=== PATIENT | female | born 1950 | race Caucasian/White ===

== ENCOUNTER 2019-05-16 23:05 | Inpatient (IN) ==
[2019-05-16] MEDS ORDERED: ASPIRIN ONE (23:20)
[2019-05-16] MEDS ORDERED: ASPIRIN PO ONE (23:27)
[2019-05-16 23:41] LABS: BASO# 0.02 X1000 (0.0-0.2); BASO% 0.2 % (0.0-0.8); EOS% 2.5 % (0.0-10.0); HEMATOCRIT 39.1 % (37.0-47.0); IMM GRAN# 0.02 X1000 (0.0-0.04); IMM GRAN% 0.2 % (0.0-0.5); LYMPH# 5.56 X1000 (1.2-3.4); LYMPH% 46.7 % (20.5-51.1); MCH 30.4 PG (27-31); MCHC 33.2 g/dL (33-37); MCV 91.6 FL (81-99); MONO% 7.6 % (1.7-9.3); MPV 9.4 FL (7.4-10.4); NEUT# 5.11 X1000 (1.4-6.5); NEUT% 42.8 % (42.2-75.2); PLT 288 X1000 (130-400); RBC 4.27 XMIL (4.2-5.4); RDW 13.1 % (11.5-14.5); WBC 11.91 X1000 (4.8-10.8)
[2019-05-17 00:03] LABS: INR 0.93; PROTIME 12.6 Seconds (11.0-16.0)
[2019-05-17 00:04] LABS: PTT 29.9 Seconds (22.3-41.8)
[2019-05-17 00:07] LABS: AGAP 10; ALB/GLOB RATIO 1.6; ALBUMIN 4.5 g/dL (3.5-5.0); ALKALINE PHOSPHATASE 101 U/L (32-104); BUN 9 mg/dL (8-22); CALCIUM 9.5 mg/dL (8.8-10.2); CHLORIDE 101 mmol/L (98-107); CK PROFILE 68 U/L (24-173); COSMO 281; CREATININE 0.6 mg/dL (0.5-0.9); ESTIMATED GFR > 60; GLUCOSE 156 mg/dL (70-104); GOT 29 U/L (10-30); GPT 37 U/L (10-36); POTASSIUM 3.9 mmol/L (3.5-5.1); SODIUM 140 mmol/L (136-145); TCO2 29 mmol/L (25-35); TOTAL PROTEIN 7.3 g/dL (6.3-8.3)
--- NOTE | 2019-05-17 00:17 | EKG Report ---
Test Performed on : 05/16/2019 11:07:10 PM Test Reason : chest pain/cardiac history with stent placement. Blood Pressure : / mmHG Vent. Rate : 101 BPM Atrial Rate : 101 BPM P-R Int : 140 ms QRS Dur : 080 ms QT Int : 326 ms P-R-T Axes : 027 044 098 degrees QTc Int : 422 ms Sinus tachycardia. Marked ST abnormality, possible lateral subendocardial injury Abnormal ECG When compared with ECG of 30-SEP-2015 15:04, ST now depressed in Lateral leads Unconfirmed Result
--- NOTE | 2019-05-17 00:25 | PROVIDER DOCUMENTATION ---
This chart was entered by Zhanna Villegas Scribe, acting as scribe for Scott Black MD. HPI-Chest Pain - General Chief Complaint: Chest Pain Stated Complaint: CHEST PAIN Time Seen by Provider: 05/16/19 23:23 Source: patient Allergies/Adverse Reactions: Patient Allergies Allergy/AdvReac Type Severity Reaction Status Date / Time No Known Allergies Allergy Verified 09/30/15 11:24 Home Medications: Home Medication List Medication Instructions Recorded Confirmed Last Taken Type Aspirin 1 tab PO DAILY 09/30/15 09/30/15 09/29/15 History Glipizide/Metformin HCl 1 tab PO BID 09/30/15 09/30/15 09/30/15 08:00 History [Glipizide-Metformin 2.5-500 mg] LISINOpril [Prinivil] 1 tab PO DAILY 09/30/15 09/30/15 09/29/15 History Nitroglycerin [Nitrostat] 1 tab SL DIRECTED 09/30/15 09/30/15 09/29/15 History Omeprazole [Prilosec] 1 cap PO DAILY 09/30/15 09/30/15 09/29/15 History Ranitidine HCl [Zantac] 300 mg PO BID #60 tablet 09/30/15 Unknown Rx Sucralfate [Carafate] 1 gm PO TID #100 tablet 09/30/15 Unknown Rx - History of Present Illness-CP Nature of Presenting Problem: Pt is 68/F presenting to ED w/ chest pain that has been intermittent for the last 6 months. Pt sts that tonight it got worse and was accompanied by SOB, dizziness and nausea. Pt describes the pain as sharp w/ some pressure. Pt does have hx of Stents, that were put in in 2009. Pt sts that this pain is worse with exersion. Location: reports: substernal Chest Pain Radiation: reports: no radiation Quality of Pain: reports: pressure, sharp Severity in ED: mild Onset/Duration: gradual, just prior to arrival Timing: improving Context/Activities at Onset: reports: none Modifying Factors: improves with: nothing Associated Symptoms: reports: denies symptoms, nausea. denies: vomiting Prior Chest Pain/Cardiac Workup: reports: stress test (nuclear) Similar Symptoms Previously?: Yes Recently Seen Here or By Another Healthcare Provider: No Review of Systems - Adult - REVIEW OF SYSTEMS - ADULT Constitutional: reports: no symptoms reported. denies: chills, fever Eyes: reports: no symptoms reported Ears, Nose, Mouth & Throat: reports: no symptoms reported Cardiovascular: reports: chest pain Respiratory: reports: no symptoms reported Gastrointestinal: reports: nausea. denies: abdominal pain, vomiting Genitourinary: reports: no symptoms reported Musculoskeletal: reports: no symptoms reported. denies: back pain Integumentary: reports: no symptoms reported Neurological: denies: dizziness/vertigo, headache/migraines Psychiatric: reports: no symptoms reported Endocrine: reports: no symptoms reported Hematologic/Lymphatic: reports: no symptoms reported Allergic/Immunologic: reports: no symptoms reported All Other Systems: Reviewed and Negative Past History - Adult - PAST MEDICAL HISTORY-ADULT Review of Records: reports: Old Records Reviewed, Nursing Assessment Review, Medications Reviewed, Social history reviewed & non-contributory. Cardiovascular: reports: HTN - PRIOR SURGERIES/PROCEDURES Surgical/Procedure History: reports: cholecystectomy, breast - IMMUNIZATION STATUS Childhood Immunizations: See Nurse Assessment Flu Vaccine: See Nurse Assessment - SOCIAL HISTORY Smoking: denies, non-smoker Substance Use: none/never Alcohol Use Frequency: never Living Situation: family Physical Exam-General - PHYSICAL EXAM-ADULT Initial Vital Signs Reviewed: Yes - CONSTITUTIONAL General Appearance: appears well, alert, no apparent distress - EYES Eyes: PERRL/EOMI, pink conjunctivae - HEAD, EARS, NOSE, MOUTH & THROAT HENMT: normocephalic/atraumatic, moist mucous membranes - NECK Neck: non-tender, full range of motion, supple, normal inspection - RESPIRATORY Respiratory: lungs clear - CARDIOVASCULAR Cardiovascular: regular rate, rhythm - MUSCULOSKELETAL Back Exam: normal inspection, no CVA tenderness, no vertebral tenderness Extremity: normal range of motion, non-tender, normal gait, normal inspection - SKIN Integumentary: normal color, warm/dry - NEUROLOGIC Neurologic: grossly normal - PSYCHIATRIC Psych/Mental Status: normal mood/affect, normal thought content, normal thought process, oriented x 3 - HEART Score HEART Score: Age: > or = 65 Years Progress - PLAN OF CARE/RESULTS Progress/Plan/Lab Results: Vital Signs - 8 hr 05/16/19 23:18 Temperature 98.6 F Pulse Rate 94 H Respiratory Rate 18 Blood Pressure 184/96 O2 Sat by Pulse Oximetry 95 Laboratory Results - last 24 hr 05/16/19 05/16/19 05/16/19 23:00 23:00 23:00 WBC 11.91 H RBC 4.27 Hgb 13.0 Hct 39.1 MCV 91.6 MCH 30.4 MCHC 33.2 RDW Std Deviation 13.1 Plt Count 288 MPV 9.4 Immature Gran % (Auto) 0.2 Neut % (Auto) 42.8 Lymph % (Auto) 46.7 [place] % (Auto) 7.6 Eos % (Auto) 2.5 Baso % (Auto) 0.2 Immature Gran # (Auto) 0.02 Neut # (Auto) 5.11 Lymph # (Auto) 5.56 H [place] # (Auto) 0.90 H Eos # (Auto) 0.30 Baso # (Auto) 0.02 PT INR PTT (Actin FS) Sodium 140 Potassium 3.9 Chloride 101 Carbon Dioxide 29 Anion Gap 10 BUN 9 Creatinine 0.6 Estimated GFR/1.73 m2 > 60 BUN/Creatinine Ratio 15 Glucose 156 H Calculated Osmolality 281 Calcium 9.5 Total Bilirubin 0.20 AST 29 ALT 37 H Alkaline Phosphatase 101 Creatine Kinase 68 Troponin T Qwu-T-Qfndelfhqmc Pept 82 Total Protein 7.3 Albumin 4.5 Globulin 2.8 Albumin/Globulin Ratio 1.6 05/16/19 05/16/19 23:00 23:00 WBC RBC Hgb Hct MCV MCH MCHC RDW Std Deviation Plt Count MPV Immature Gran % (Auto) Neut % (Auto) Lymph % (Auto) [place] % (Auto) Eos % (Auto) Baso % (Auto) Immature Gran # (Auto) Neut # (Auto) Lymph # (Auto) [place] # (Auto) Eos # (Auto) Baso # (Auto) PT 12.6 INR 0.93 PTT (Actin FS) 29.9 Sodium Potassium Chloride Carbon Dioxide Anion Gap BUN Creatinine Estimated GFR/1.73 m2 BUN/Creatinine Ratio Glucose Calculated Osmolality Calcium Total Bilirubin AST ALT Alkaline Phosphatase Creatine Kinase Troponin T < 0.010 Lab-U-Xinoxbfgvpu Pept Total Protein Albumin Globulin Albumin/Globulin Ratio Orders Category Date Time Status Cardiac Monitoring DIRECTED Care 05/16/19 23:28 Active Oxygen Therapy- ED Nursing DIRECTED Care 05/16/19 23:28 Active Saline Loc NOW Care 05/16/19 23:28 Active CHEST-2 VIEWS [RAD] Stat Exams 05/16/19 23:28 Taken CBC WITH ELECTRONIC DIFF [HEME] Stat Lab 05/16/19 23:00 Completed CK PROFILE [SP CHEM] Stat Lab 05/16/19 23:00 Completed COMPREHENSIVE METABOLIC PANEL [CHEM] Stat Lab 05/16/19 23:00 Completed PRO B-NATRIURETIC PEPTIDE Stat Lab 05/16/19 23:00 Completed PROTIME WITH INR [COAG] Stat Lab 05/16/19 23:00 Completed PTT [COAG] Stat Lab 05/16/19 23:00 Completed TROPONIN T Stat Lab 05/16/19 23:00 Completed Aspirin Med 05/16/19 23:20 Discontinued 325 mg .ROUTE .STK-MED ONE Aspirin Med 05/16/19 23:27 Discontinued 325 mg PO NOW ONE CP/SOB/Palp >45 yrs of Age Stat Oth 05/16/19 23:27 Ordered EKG [EKG] Stat Ther 05/16/19 23:28 Draft Result Diagrams: 05/16/19 23:00 05/16/19 23:00 - EKG 1 Time of EKG reading by physician:: 23:07 EKG Read and Signed by:: Scott Black EKG Interpretation (*Must complete 3 of following elements*): Abnormal (Sinus tachycardia, Marked ST Abnormality, Possible lateral subendocardial injury. Abnormal ECG) Rate: 101 Rhythm: sinus tachycardia [place]: normal QRS: normal Departure - Departure Date of Disposition Decision: 05/17/19 Time of Disposition Decision: 00:24 DIAGNOSIS: Stable angina Chest pain Qualifiers: Chest pain type: other chest pain Qualified Code(s): R07.89 - Other chest pain; R07.8 - Other chest pain Disposition: ADMITTED INPATIENT 09 Certified Medical Emergency: Emergent Condition: Stable Referrals and Follow-Ups: Michael Vasquez MD [Primary Care Provider] - - Critical Care Note This patient required my direct & personal management of CC.: No Attestation - Physician/ RIDGE Attestation Patient care was provided by Advanced Practice Provider:: No The physician spent face to face time with patient:: Yes Advanced Practice Provider documentation review:: Supervising physician onsite and consulted in the evaluation and care of this patient. The physician did have a face to face encounter with the patient. This chart was documented by the indicated scribe, (Zhanna Villegas Scribe) and accurately reflects the services I performed and decisions made by me, Scott Parada MD, as attested by the provider's signature.
--- NOTE | 2019-05-17 01:48 | HISTORY AND PHYSICAL ---
ADDENDUM REPORT Patient of Dr. Vasquez and patient of Dr. Vila. Patient is a 68-year-old woman with past medical history of hypertension, hyperlipidemia, type 2 diabetes, prior CAD status post stent. Complaining of at least 6 months history of exertional chest pain which has gotten progressively worse over the last couple of weeks, i.e., in intensity, duration prior to relief and additional anginal symptoms such as diaphoresis, nausea, lightheadedness and palpitations. Brought into today at the behest of her daughter who is a nurse and because the patient was complaining that her pain was so intense. She did not complain of leg swelling, PND, orthopnea with this. Her EKG just shows normal sinus rhythm with nonspecific ST wave changes in the lateral leads. Chest film is normal. Troponin is negative. Based on her presentation, this patient has unstable angina. We will start her on full dose aspirin, high dose statin, i.e., Lipitor 80 mg daily, and control blood sugars with sliding scale, check A1c, lipid panel. We will call Dr. Christian preference of Lovenox versus heparin. Put her on nitroglycerin paste. This patient definitely will need a cardiac cath because of her symptoms to evaluate her coronary anatomy better. cc: MD Michael Villegas MD William D. Denney, MD MTDD
[2019-05-17] MEDS ORDERED: MORPHINE IV PRN (02:21)
[2019-05-17] MEDS ORDERED: ZOFRAN IV PRN (02:21)
[2019-05-17] MEDS ORDERED: NITROGLYCERIN TOP PRN (02:21)
[2019-05-17] MEDS ORDERED: TYLENOL PO PRN (02:21)
[2019-05-17] MEDS: LOVENOX SUBQ SCH ×2 (03:03→15:12)
--- NOTE | 2019-05-17 05:15 | HISTORY AND PHYSICAL ---
PRIMARY CARE PROVIDER: Dr. Michael Vasquez. SBA UNDERWRITER: Dr. Vila. DATE AND TIME: 05/17/2019 at 0040. CHIEF COMPLAINT: Chest pain. HISTORY OF PRESENT ILLNESS: Ms Carter is a 68-year-old female with a past medical history of coronary artery disease status post cardiac stent placement x1 in 2009. The patient reports that since her stent placement she has had 1 stress test performed, though this was quite a few years ago. She also reports that she has high blood pressure, hyperlipidemia, and diabetes mellitus type 2. The patient states that since approximately October 2018, that she has been having intermittent chest pain with exertion. She states that since October this exertional chest pain has progressively gotten worse, and in the last month the number of episodes have increased as well as the intensity of the pain and the duration of how long the pain takes to stop after she sits down and rests has increased as well. She has been reporting some associated symptoms of dizziness, dyspnea, diaphoresis, and indigestion. The patient reports that this evening the pain did become so intense that she became very uncomfortable, was actually crying. She reported it to be a 10/10 on the pain scale. Secondary to this, she did come into the ER for further evaluation. She denies any headache, cough, abdominal pain, nausea, vomiting, or diarrhea. She denies any dysuria or urinary frequency. She denies any pain, numbness, tingling, or swelling in her extremities. She also denies any fever, body aches, or chills. On evaluation in the ER, patient's EKG showed normal sinus rhythm with nonspecific ST-wave changes in lateral leads. Her chest x-ray showed no acute abnormalities, and CK and troponin at this time are negative. Electrolytes are within normal limits as well. She was given a full dose 325 mg aspirin in the ER. Though, given her history and reported symptoms, and that her chest pain episodes have increased in number of occurrences, intensity, and duration, we will admit her for evaluation of her unstable angina. The patient reported that the chest pain that she was experiencing was in the center of her chest, was a 10/10. It was sharp in nature. It did radiate to her bilateral shoulders and neck, though she denies any chest pain at present. REVIEW OF SYSTEMS: A 14-point review of systems was conducted with the patient and all were negative, except for pertinent positives mentioned above in HPI. PAST MEDICAL HISTORY: 1. Coronary artery disease, stent cardiac stent placement x1 in 2009. 2. Hypertension. 3. Diabetes mellitus type 2. 4. Hyperlipidemia. 5. Gastroesophageal reflux disease. PAST SURGICAL HISTORY: 1. Breast reduction. 2. Cardiac stent placement x1 in 2009. SOCIAL HISTORY: The patient denies any past or present tobacco, alcohol, or illicit drug use. FAMILY HISTORY: Positive for her Mother having history of diabetes mellitus an hypertension. Her Father had a history of heart disease and did have an abdominal aortic aneurysm repair, which unfortunately he did get a post-op infection with MRSA and approximately 1 month after surgery due to complications of infection. Both of her sisters are , one had a history of hypertension. The other did have lung cancer, though was a smoker. ALLERGIES: No known allergies. HOME MEDICATIONS: 1. Aspirin 81 mg p.o. daily. 2. Fenofibrate 145 mg p.o. daily. 3. Glipizide-metformin 2.5-5 mg, 1 tablet p.o. b.i.d. 4. Bydureon pen, 0.6 units subcu q.7 days, the last dose reportedly taken 05/15/2019. 5. Prilosec 20 mg p.o. daily 6. Lisinopril 10 mg p.o. daily. The patient states that Dr. Vasquez recently increased this to 10mg p.o. twice daily, though at this time she has not increased her dose and still takes 10mg p.o. once daily. . DIAGNOSTIC DATA: White blood cell 11,910, hemoglobin 13, hematocrit 39.1, platelet count 288. PT 12.6, INR 0.93, PTT is 29.9. Sodium 140, potassium 3.9, chloride 101, serum bicarbonate 29, BUN 9, creatinine 0.6. Glucose 156, calcium 9.5, Magnesium 2.1. Liver function tests within normal limits, except ALT is slightly elevated at 37. CK 68, troponin 0.01. Pro-BNP 82. EKG showed normal sinus rhythm with nonspecific ST, T-wave changes in the lateral leads at a rate of 101, with a QTc of 422 msec. Chest x-ray showed no acute abnormalities, but we are awaiting official Radiology over-read. PHYSICAL EXAMINATION: VITAL SIGNS: Temperature 98.2 degrees, heart rate 83, respirations 20, blood pressure 135/83, oxygen saturation is 97% on room air. GENERAL: Ms Carter is a very pleasant, 68-year-old, female. She was resting on the ER stretcher. She was in no acute distress. She was awake, alert, and able to answer questions appropriately. HEENT: Head is atraumatic, normocephalic. Pupils are equal, round, reactive to light, were 3 mm bilaterally and brisk. Oral mucosa was moist. Oropharynx is clear. NECK: Supple. Trachea midline. No carotid bruits noted upon auscultation bilaterally. CARDIOVASCULAR: Patient has S1, S2 present. No murmurs, gallops, rubs appreciated with a regular rate and rhythm. PULMONARY: Patient has symmetrical chest expansion bilaterally. Lung sounds are clear to auscultation bilateral full [place]. ABDOMEN: Soft, nondistended, though the patient does have a slightly protuberant abdomen noted. Her abdomen is nontender upon palpation. Bowel sounds are present in all 4 quadrants, are normoactive. EXTREMITIES: No cyanosis or edema noted. Pulse, motor, and sensory were intact in all extremities. Radial and pedal pulses were 2+ bilaterally. INTEGUMENTARY: The patient's skin is pink, warm, and dry. NEUROLOGICAL: Patient is alert and oriented to person, place, time, and situation. She is she is able to move all extremities. There are no focal neurological deficits noted. ASSESSMENT AND PLAN: 1. Unstable angina. We will place her on 325 mg aspirin p.o. daily, atorvastatin 80 mg p.o. daily. We have placed a cardiology consult with Dr. Christian and did contact him in regards to his preference of anticoagulation with either Lovenox versus heparin drip. He did recommend Lovenox. We have placed an order 1 mg/ kg subcutaneously q.[address] p[address]r.n. orders for nitroglycerin and morphine for chest pain. We will continue her regularly prescribed antihypertensive medication of lisinopril. We will do a series of cardiac enzymes. We will repeat an EKG in the morning, and we have placed an order for an echocardiogram. She will be placed on our PVC unit on continuous cardiac telemetry with frequent vital signs for close monitoring. We will await Cardiology evaluation and further recommendations for management. 2. Coronary artery disease status post cardiac stent placement x1. We will continue treatment as mentioned above in #1. 3. Hypertension. We will continue regularly prescribed antihypertensive medication of lisinopril. 4. Diabetes mellitus type 2. At this time, we will place the patient on sliding scale regular insulin, do pattern fingerstick blood sugars. We will order a hemoglobin A1c. 5. Hyperlipidemia. We have placed the patient on atorvastatin 80 mg p.o. at bedtime. 6. Deep venous thrombosis prophylaxis being provided with the above-mentioned Lovenox. She will be placed on the PVC unit with continuous cardiac telemetry. We will do q.4 hours vital signs, strict intake and output. She will be on a diabetic and heart healthy diet, though will be likely NPO after midnight on Saturday for possible cardiac catheterization Saturday. We will also draw lipid profile at that time as well. Further orders and recommendations pending hospital course, diagnostic studies, and physician evaluations. Dictated by ALE Patel for Hayde Sierra MD cc: MD Michael Villegas MD MTDD
[2019-05-17 05:53] LABS: BASO# 0.02 X1000 (0.0-0.2); BASO% 0.2 % (0.0-0.8); EOS# 0.27 X1000 (0.0-0.7); EOS% 2.9 % (0.0-10.0); HEMATOCRIT 36.6 % (37.0-47.0); HEMOGLOBIN 12.3 g/dL (12.0-16.0); IMM GRAN# 0.02 X1000 (0.0-0.04); IMM GRAN% 0.2 % (0.0-0.5); LYMPH# 4.37 X1000 (1.2-3.4); LYMPH% 46.6 % (20.5-51.1); MCH 31.1 PG (27-31); MCHC 33.6 g/dL (33-37); MCV 92.7 FL (81-99); MONO# 0.57 X1000 (0.11-0.59); MONO% 6.1 % (1.7-9.3); MPV 9.9 FL (7.4-10.4); NEUT# 4.13 X1000 (1.4-6.5); PLT 269 X1000 (130-400); RBC 3.95 XMIL (4.2-5.4); RDW 13.2 % (11.5-14.5); WBC 9.38 X1000 (4.8-10.8)
[2019-05-17 06:05] LABS: HEMOGLOBIN A1C 7.1 % (4.8-6.0)
[2019-05-17] MEDS: PRILOSEC PO SCH (06:33)
[2019-05-17] MEDS: HUMULIN R SUBQ SCH ×4 (06:34→21:50)
--- NOTE | 2019-05-17 07:41 | EKG Report ---
Test Performed on : 05/17/2019 07:05:30 AM Test Reason : chest pain Blood Pressure : / mmHG Vent. Rate : 076 BPM Atrial Rate : 076 BPM P-R Int : 140 ms QRS Dur : 086 ms QT Int : 344 ms P-R-T Axes : 029 026 064 degrees QTc Int : 387 ms Normal sinus rhythm. Nonspecific T wave abnormality Abnormal ECG When compared with ECG of 16-MAY-2019 23:07, (Unconfirmed) ST no longer depressed in Lateral leads Confirmed by Airam Milton MD ([id number]) on 05/19/2019 8:29:24 AM
--- NOTE | 2019-05-17 08:19 | Diag Imaging Result Doc PS360 ---
EXAM: CHEST-2 VIEWS - 05/16/2019 HISTORY: Chest Pain Substernal/Cardiac Stents. TECHNIQUE: Chest two views COMPARISON: 10/10/2015 FINDINGS: Heart size is normal. There is chronic elevation of anterior right hemidiaphragm. The lungs appear clear. There is no pleural effusion or pneumothorax identified. There is thoracic spondylosis noted. There are small calcifications noted of the anterior upper quadrant abdomen which may represent gallstones. IMPRESSION: No evidence of acute disease. There are possible gallstones noted at the right upper quadrant abdomen. Electronically signed by Sachin Stoll 05/17/2019 8:16 AM
[2019-05-17] MEDS: PRINIVIL PO SCH (09:31)
[2019-05-17] MEDS ORDERED: LOPRESSOR PO ONE (12:36)
--- NOTE | 2019-05-17 14:01 | PROGRESS NOTE ---
DATE: 05/17/2019 SUBJECTIVE: The patient's chart was reviewed. In summary, patient was admitted to [facility] early this morning with chest discomfort. The patient has a known history of coronary artery disease requiring stent placement in 2009. The patient was placed in the PVC unit. She was started on an aspirin and Lovenox therapy. High dose atorvastatin was initiated. Upon my arrival, patient was sitting upright in bed visiting with her family. The patient noted minimal chest discomfort. She denies current nausea, vomiting, shortness of breath, or palpitations. Primary reducing machine operator is Dr. Vila. OBJECTIVE: T-max 98.6 degrees, heart rate 73 to 91, respirations 16 to 22, blood pressure 135 to 175 over 75 to 98.General: Well nourished, well developed, no acute distress. Cardiovascular: Regular rate and rhythm. No significant murmurs, rubs, or gallops. Pulmonary: Clear to auscultation bilaterally. Abdomen: Soft, nontender, nondistended. Positive bowel sounds. Extremities: Moves all extremities well. No significant clubbing, cyanosis, or edema. Dermatologic: Evaluation reveals no evidence of rash. LABORATORY DATA: White blood cell count 9.38, hemoglobin 12.3, hematocrit 36.6, platelet count 269,000. Hemoglobin A1c is 7.1. Serial cardiac enzymes and troponin have returned negative. ASSESSMENT AND PLAN: 1. Unstable angina in a patient with known coronary artery disease-we will continue aspirin, atorvastatin, and Lovenox. Nitroglycerin paste has been ordered for as needed for chest discomfort. We will pursue Cardiology consultation. The patient will remain n.p.o. after midnight for possible cardiac evaluation. We will add low-dose beta-pallavi this morning. 2. Known coronary artery disease-as above, patient is status post stent placement. We will aggressively manage risk factors and address unstable angina as above. 3. Hypertension-patient's blood pressure remained slightly elevated despite lisinopril therapy. We will add a beta-pallavi as described. We will follow this and adjust medications as necessary. 4. Type 2 diabetes-we will continue patient on sliding scale insulin. 5. Iowttgweoznmqh-xhzh-guzx atorvastatin therapy was initiated upon admission. We will continue this and defer further management to Dr. Vasquez. 6. Hypertriglyceridemia-patient is treated with fenofibrate as an outpatient. This will be held with the initiation of atorvastatin. We will defer resuming this to Dr. Vasquez. 7. Reflux disease-we will continue patient on omeprazole therapy. 8. Possible cholelithiasis-this was noted per chest x-ray. We will defer possible evaluation with ultrasound to Dr. Vasquez after cardiology evaluation has been completed. 9. Disposition-at this point, patient continues to require shelter care in a hospital setting. We will plan discharge home once appropriate. cc: MD Michael Burciaga MD
--- NOTE | 2019-05-17 14:54 | CARDIOLOGY CONSULTATION ---
DATE: 05/17/2019 HISTORY OF PRESENT ILLNESS: Cardiology was consulted for chest pain. Ms. Carter is a 68-year- old, lady with a history of coronary artery disease, stent placement in 2009, history of diabetes, hypertension, hyperlipidemia. Comes with complaints of chest discomfort which has been intermittent and gradually worsening. She had a very severe episode of chest discomfort going back in August which subsequently, after that, she had felt well. However, in the last 2 to 3 months, she has been getting intermittent episodes of chest pain with exertion which she describes as retrosternal in area. Symptoms of chest pain worsened. She came to the emergency room and subsequently was admitted. As far as intensity of chest pain, it has progressively worsened and she was uncomfortable with that. She described it as a severe pressure-like sensation. Her electrocardiogram revealed normal sinus rhythm with nonspecific ST-T changes. She has been ruled out for myocardial infarction by cardiac enzymes. She denies any radiation to the back or down the arms. There is no history of orthopnea or paroxysmal nocturnal dyspnea. REVIEW OF SYSTEMS: A 14-point review of systems was done. Gastrointestinal System: There is no history of nausea, vomiting, or diarrhea. There is no history of hematemesis or melena. Central Nervous System: No focal weakness to suggest a CVA, TIA. System: There is no dysuria or hematuria. Respiratory System: There is no history of cough, expectoration, or hemoptysis. There is no history of fevers or chills. PAST MEDICAL HISTORY: 1. Coronary artery disease, status post stent placement in 2009. 2. Hypertension. 3. Hyperlipidemia. 4. Gastroesophageal reflux disease. 5. Breast reduction surgery. SOCIAL HISTORY: She denies tobacco abuse. FAMILY HISTORY: Positive for mother having had diabetes. Her father had a history of heart disease and also had an abdominal aorta aneurysm repair. ALLERGIES: She is not known to be allergic to any medications. HOME MEDICATIONS: Include aspirin 81 mg a day, fenofibrate 185, glipizide/metformin 2.5/500 one tablet b.i.d., Bydureon injections, Prilosec 20, lisinopril. PHYSICAL EXAMINATION: Vital Signs: Blood pressure was 135/83. Cardiovascular System: Normal jugular venous pressure. There was no thyromegaly. There was no carotid bruit. First and second heart sounds were heard. There is a faint systolic murmur. Respiratory System: Normal air entry. There were no crepitations or rhonchi. Abdomen: Soft, nontender. There was no guarding or rigidity. Bowel sounds were heard. Central Nervous System: Alert and was moving all 4 extremities. Examination of extremities revealed no pedal edema. HEENT: Atraumatic, normocephalic. Pupils were equal and reacting to light. LABORATORY EXAMINATION: Revealed WBC of 9.38, RBC of 3.95, hemoglobin 12.3, hematocrit 36.6, platelet count of 269,000. Sodium 140, potassium 3.9, BUN 9, creatinine 0.6. Cardiac enzymes negative. Electrocardiogram revealed normal sinus rhythm with nonspecific ST-T changes. Chest x- ray, possible gallstone, right upper quadrant. ASSESSMENT AND PLAN: 1. Ms. Viviana Carter is a 68-year-old, lady with a history of known coronary artery disease, diabetes, hypertension, hyperlipidemia. Comes with complaints of having recurrent chest pain since the last couple of months. She had severe retrosternal chest discomfort going back in August as well. The patient has unstable angina. Given this, I have recommended that she undergo a left heart catheterization. Risks, benefits, and alternatives were explained. Patient will be set up for a left heart catheterization in the morning. 2. Hypertension. Continue with her medications. 3. Diabetes. Continue with her medications. 4. Hyperlipidemia. She is on atorvastatin. I have not made any changes. 5. She has gastroesophageal reflux disease. Continue with omeprazole. 6. She has cholelithiasis. There was no tenderness noted in the abdomen. We will follow up after her cardiac catheterization. Thank you for the consult. We will follow hospital course. cc: MD Michael Blankenship MD
--- NOTE | 2019-05-17 16:36 | ECHO REPORT ---
ORDER DATE: 05/17/2019 ECHOCARDIOGRAPHIC MEASUREMENTS: 1. Interventricular septum 1.1. 2. Left ventricular posterior wall 1.1. 3. Diastolic diameter 4.1. 4. Left atrium 3.5. 5. Aorta 2.9. SUMMARY: 1. Aortic valve leaflets are trileaflet. 2. Pulmonic valve was normal. 3. Tricuspid valve was normal. 4. Mitral valve was normal. 5. Normal left ventricular cavity size. Estimated ejection fraction of 65%. 6. There is mild diastolic dysfunction. 7. There is trace mitral regurgitation. 8. Mild tricuspid regurgitation. 9. Peak velocity across the tricuspid valve was 2.2 m/sec. 10. Technically suboptimal study. 11. Anterior echo-free space suggestive of pericardial fat pad was noted. There is no pericardial effusion or obvious intracardiac mass or thrombus. cc: MD Michael Blankenship MD
[2019-05-17] MEDS ORDERED: ASPIRIN PO SCH (21:00)
[2019-05-17] MEDS ORDERED: LIPITOR PO SCH (21:00)
[2019-05-17] MEDS: LOPRESSOR PO SCH (21:47)
[2019-05-18 05:24] VITALS: BP 133/62
[2019-05-18] MEDS: HUMULIN R SUBQ SCH ×2 (06:13→11:38)
[2019-05-18 07:23] LABS: BASO# 0.03 X1000 (0.0-0.2); BASO% 0.4 % (0.0-0.8); EOS% 2.6 % (0.0-10.0); HEMOGLOBIN 12.8 g/dL (12.0-16.0); IMM GRAN# 0.02 X1000 (0.0-0.04); IMM GRAN% 0.3 % (0.0-0.5); LYMPH# 2.81 X1000 (1.2-3.4); LYMPH% 37.2 % (20.5-51.1); MCH 30.6 PG (27-31); MCHC 32.8 g/dL (33-37); MCV 93.3 FL (81-99); MONO# 0.55 X1000 (0.11-0.59); MONO% 7.3 % (1.7-9.3); MPV 9.6 FL (7.4-10.4); NEUT# 3.94 X1000 (1.4-6.5); NEUT% 52.2 % (42.2-75.2); PLT 274 X1000 (130-400); RBC 4.18 XMIL (4.2-5.4); RDW 13.2 % (11.5-14.5); WBC 7.55 X1000 (4.8-10.8)
[2019-05-18 07:45] LABS: AGAP 12; BUN 10 mg/dL (8-22); CALCIUM 9.1 mg/dL (8.8-10.2); CHLORIDE 101 mmol/L (98-107); COSMO 280; CREATININE 0.6 mg/dL (0.5-0.9); ESTIMATED GFR > 60; GLUCOSE 186 mg/dL (70-104); POTASSIUM 3.9 mmol/L (3.5-5.1); SODIUM 138 mmol/L (136-145); TCO2 25 mmol/L (25-35)
[2019-05-18] MEDS: PRINIVIL PO SCH (08:15)
[2019-05-18] MEDS: LOPRESSOR PO SCH (08:15)
[2019-05-18] MEDS: PRILOSEC PO SCH (08:15)
[2019-05-18] MEDS ORDERED: NITROGLYCERIN ONE (08:24)
[2019-05-18] MEDS ORDERED: SODIUM CHLORIDE 0.9% 20 ML ONE (08:24)
[2019-05-18] MEDS ORDERED: HEPARIN 1000 UNITS/NS 2,000 UNIT/1,000 ML IV.SOLN ONE (08:25)
[2019-05-18] MEDS ORDERED: VERSED ONE (08:49)
[2019-05-18] MEDS ORDERED: DILAUDID ONE (08:50)
[2019-05-18] MEDS ORDERED: ANESTHESIA PB SET 88 IN 5742 ONE (08:59)
[2019-05-18] MEDS ORDERED: NS 1,000 ML ONE (08:59)
[2019-05-18] MEDS ORDERED: CLAVE TWINSITE 32 IN 11959 ONE (08:59)
[2019-05-18] MEDS ORDERED: TOPROL XL PO SCH (09:00)
--- NOTE | 2019-05-18 10:44 | CARDIAC CATH REPORT ---
PROCEDURE NAME: - INDICATION FOR THE PROCEDURES: Unstable angina. PROCEDURES PERFORMED: 1. Left heart catheterization. 2. Selective coronary angiography. 3. Left ventriculogram. PROCEDURE IN DETAIL: Ms. Carter was brought to the catheterization laboratory in a fasting state. Informed consent was obtained. Prepped in the usual fashion. She was anesthetized over the right radial artery after Christian's test proved adequate. A 5-Jordanian sheath was placed via true Seldinger technique. Radial cocktail was administered. Catheters were introduced and hemodynamic measurements made in the ascending thoracic aorta. Coronary angiography was performed in multiple views using JL3.5 and JR4 diagnostic catheters. Left heart catheterization and left ventriculogram were performed using the JR4. At the conclusion of the procedure, all sheaths and catheters were removed. TR band was left inflated at 9 mL of air with good capillary refill and good hemostasis. No apparent complications. There were 80 mL of IV contrast and 5-10 mL of blood loss. FINDINGS: 1. The left main originates from the left coronary cusp. It has minor luminal irregularities. 2. Left anterior descending originates from the left main. There is a 95% late proximal lesion at the origin of the first diagonal with minor luminal regularities proceeding as well as after the lesion in the mid and distal vessel. 3. Circumflex appears to have a possible ostial 80% lesion. There is a high OM1 versus ramus branch that appears to have mild luminal irregularities. The mid vessel appears to be occluded and has some faint collaterals, mainly from the right to the left. 4. Right coronary originates from the right coronary cusp. Minor luminal regularities are noted in the proximal vessel with a patent stent. The late mid vessel has an 80% discrete lesion with minor luminal irregularities noted in the distal vessel. 5. Left ventriculogram demonstrates an ejection fraction of 70%. 6. Aortic blood pressure 132/83 with a mean of 104. Left ventricular pressure of 148/8 with an LVEDP of 14. ASSESSMENT: Ms. Carter is a 68-year-old, white female with diabetes who presented with unstable angina symptoms. PLAN: She appears to have multivessel coronary artery disease as evidenced by right coronary, circumflex, and LAD lesions. Given her history of diabetes and normal ejection fraction, she would be a candidate for cardiovascular surgery evaluation. We will transfer her over to [facility]. She has been accepted and we will proceed with that current plan. cc: MD Michael Lanza MD
[2019-05-18] MEDS ORDERED: TOPROL XL PO ONE (11:21)
--- NOTE | 2019-05-18 13:41 | PROGRESS NOTE ---
DATE: 05/18/2019 SUBJECTIVE: The patient has no complaints. She has not had any chest pain but not exerted herself any during her hospitalization. I reviewed her admission history and physical as well as lab reports all of which were grossly normal with the exception of slightly elevated sugar, which is likely the same as it has been at home. The patient was admitted for progressive stable angina and some unstable characteristics. OBJECTIVE: Vital Signs: 97.5, 70, 18, 133/62, 97% saturated on room air. General: The patient is alert, oriented, conversive and appropriate. Lungs: Clear to auscultation. Cardiovascular: Regular without appreciable murmur or gallop. Extremities: Show no peripheral edema. ASSESSMENT AND PLAN: I delayed the dictation of this note because the patient was already scheduled for left heart catheterization. The results of that catheterization showed multivessel disease with significant stenoses which will likely require bypass surgery for intervention. She is good candidate with a preserved ejection fraction and Dr. Aguirre is taking care of the transfer orders. I am in agreement with this plan and I had discussed this beforehand with the patient and her family. DISCHARGE DIAGNOSIS: Include 1. Unstable angina. 2. Coronary ischemia or atherosclerosis of the [place] vessels. 3. Diabetes. 4. Hypercholesterolemia. 5. Hypertension. cc: Michael Vasquez MD
[2019-05-19] MEDS ORDERED: TOPROL XL PO SCH (09:00)
== END 2019-05-18 12:26 | disposition short-term general hospital (02) | DRG 287 ==
LOC: ED 23:05 → SUATTDRO 05-17 01:53 → 2N 05-17 01:53
PROVIDERS: ADMIT Internal Medicine; ATTEND Internal Medicine